=== PATIENT | male | born 1960 | race Caucasian/White ===

== ENCOUNTER 2017-11-25 02:20 | Emergency (ER) | payer MEDICARE, SELFPAY ==
--- NOTE | 2017-11-25 02:20 | DT_ITS ---
This patient was seen during an EMR downtime November 19, 2017 - November 26, 2017. This patient may have a combination of paper and electronic documentation or all paper documentation. All documentation is viewable within the e-chart portion of [facility] for each patient visit.
== END 2017-11-25 02:35 | disposition home or self-care (01) ==
LOC: ED 19:31
PROVIDERS: Emergency Provider Emergency Medicine
DX: M25.512 Pain in left shoulder (principal); Z85.820 Personal history of malignant melanoma of skin; E11.9 Type 2 diabetes mellitus without complications; Z96.653 Presence of artificial knee joint, bilateral; Z96.643 Presence of artificial hip joint, bilateral; Z79.4 Long term (current) use of insulin
CPT/HCPCS: 96372; 99282